=== PATIENT | male | born 1950 | race Caucasian/White ===

== ENCOUNTER 2017-12-11 07:54 | Day surgery (SDC) | payer MEDICARE ==
[~2017-12-11] VITALS: Ht 167.6 cm; Wt 60.1 kg
[~2017-12-11 07:54] MED LIST: FINA5TAB41 PO; IBUP-2353 PO; INDA2.5T5 PO; POTA10TA11 PO; SIMV40TA5 PO; SODIUM CHLORIDE 0.9% 1000ML 1,000 ML IV ONE; TAMS0.4C32 PO; UBID30CA11 PO; [UNRECOGNIZED DRUG - OTHER] PO
[2017-12-11 09:35] VITALS: BP 139/78
[2017-12-11 11:50] VITALS: BP 138/71
[2017-12-11 12:15] VITALS: BP 167/83
== END 2017-12-11 12:30 ==
LOC: DAH 07:54 → ENDO 07:54
PROVIDERS: ATTEND Internal Medicine Gastroenterology
DX: Z09 Encounter for follow-up examination after completed treatment for conditions other than malignant neoplasm (principal); K63.5 Polyp of colon; Z86.010 Personal history of colon polyps; K56.2 Volvulus; E78.5 Hyperlipidemia, unspecified; I10 Essential (primary) hypertension; Z86.73 Personal history of transient ischemic attack (TIA), and cerebral infarction without residual deficits; F41.9 Anxiety disorder, unspecified; F32.9 Major depressive disorder, single episode, unspecified; Z98.890 Other specified postprocedural states; Z79.899 Other long term (current) drug therapy
CPT/HCPCS: 45380; 88305; 93005; A4606; J7030

== ENCOUNTER → 2018-12-01 | Outpatient (CLI) | payer MEDICARE ==
[~2018-12-01] MED LIST changes: -SODIUM CHLORIDE 0.9% 1000ML 1,000 ML IV ONE
== END | disposition home or self-care (01) ==
LOC: LAB 12:27
PROVIDERS: ATTEND Internal Medicine Gastroenterology
DX: R19.4 Change in bowel habit (principal)
CPT/HCPCS: 87507